=== PATIENT | female | born 1985 | race Asian ===

== ENCOUNTER 2020-07-29 16:02 | Inpatient (IN) | payer BC ==
[2020-09-15] MEDS ORDERED: Ondansetron PF 4 MG/2 ML Vial IVP PRN (10:53)
[2020-09-15] MEDS ORDERED: Famotidine/PF 20 mg/2ml Vial SLOW IVP PRN (10:53)
[2020-09-15] MEDS ORDERED: CEFAZOLIN 2 GM in Premix Bag 1 BAG IVPB SCH (10:53)
[2020-09-15] MEDS ORDERED: hydrALAZINE 20 MG/ML VIAL SLOW IVP PRN (10:53)
[2020-09-15] MEDS ORDERED: Bicitra 30 ML UDCUP PO PRN (10:53)
[2020-09-15] MEDS ORDERED: Promethazine HCl 25 MG/ML VIAL IM PRN (10:53)
[2020-09-15] MEDS: Lactated Ringer's 1,000 ML IV SCH ×2 (11:30→15:02)
[2020-09-15 11:39] VITALS: BMI 34.2
[2020-09-15 11:54] LABS: Hemoglobin 11.3 g/dL (12.0-15.5); Mean Corpuscular HGB CONC 33.1 g/dL (32.0-36.0); Mean Corpuscular Hemoglobin 28.2 pg (27.0-33.0); Mean Platelet Volume 11.7 fl (7.4-10.4); Platelet Count 184 10x3/uL (150-450); RBC Distribution Width 13.2 % (11.5-14.5); Red Blood Cell (RBC) Count 4.01 10x6/uL (3.90-5.03); White Blood Cell (WBC) Count 9.8 10x3/uL (3.5-10.5)
[2020-09-15 12:30] LABS: Hep B Surf Ag Non-Reactive S/CO (NonReactive); Syphilis Antibody Nonreactive (Nonreactive); Syphilis Antibody Index 0.04 S/CO (<1.00 Non-Reactive)
[2020-09-15 12:37] LABS: HBSAg Index 0.12 S/CO (0-0.99)
[2020-09-16] MEDS ORDERED: ePHEDrine Sulfate 50 MG/10 ML VIAL ONE (07:04)
[2020-09-16] MEDS ORDERED: Ketorolac Tromethamine 15 MG/ML VIAL ONE (07:04)
[2020-09-16] MEDS ORDERED: Morphine PF 10 MG/10 ML VIAL ONE (07:04)
[2020-09-16] MEDS ORDERED: Ondansetron PF 4 MG/2 ML Vial ONE (07:05)
[2020-09-16] MEDS ORDERED: Dexamethasone 4 mg/ml Vial ONE (07:05)
[2020-09-16] MEDS ORDERED: Oxytocin 10 UNITS/ML VIAL ONE (07:05)
[2020-09-16] MEDS ORDERED: Phenylephrine 10 MG/ML VIAL ONE (07:05)
[2020-09-16] MEDS ORDERED: Acetaminophen 325 MG TAB PO PRN (07:28)
[2020-09-16] MEDS ORDERED: Misoprostol 200 MCG TAB PR PRN (07:28)
[2020-09-16] MEDS ORDERED: Lanolin Ointment 7 GM TUBE TOP PRN (07:28)
[2020-09-16] MEDS ORDERED: hydrALAZINE 20 MG/ML VIAL SLOW IVP PRN (07:28)
[2020-09-16] MEDS ORDERED: HYDROcodone/Acetaminophen 5/325 mg Tablet PO PRN ×3 (07:28→21:00)
[2020-09-16] MEDS ORDERED: Adacel (T-DAP) 0.5 ML SYRINGE IM ONE (07:28)
[2020-09-16] MEDS ORDERED: diphenhydrAMINE 25 MG CAP PO PRN (07:28)
[2020-09-16] MEDS ORDERED: Zolpidem Tartrate 5 MG TAB PO PRN ×2 (07:28→21:00)
[2020-09-16] MEDS ORDERED: NS w/ Oxytocin 30 units 500 ML IVPB SCH (08:00)
[2020-09-16] MEDS ORDERED: Midazolam HCl 2 mg/2 ml Vial ONE ×2 (08:03→08:05)
[2020-09-16] MEDS ORDERED: Eucerin (Mineral Oil/Petrolatum,White) 30 gm Jar TOP PRN (08:24)
[2020-09-16] MEDS ORDERED: Meperidine HCl/PF 25 MG/ML VIAL SLOW IVP PRN (08:24)
[2020-09-16] MEDS ORDERED: Promethazine HCl 25 MG/ML VIAL IM PRN (08:24)
[2020-09-16] MEDS ORDERED: diphenhydrAMINE 50 MG/ML VIAL IVP PRN (08:24)
[2020-09-16] MEDS ORDERED: Ketorolac Tromethamine 30 MG/ML VIAL IVP PRN (08:24)
[2020-09-16] MEDS ORDERED: Promethazine HCl 25 MG SUPP PR PRN (08:24)
[2020-09-16] MEDS ORDERED: Ondansetron HCl/PF 4 MG/2 ML Vial IVP PRN (08:24)
[2020-09-16] MEDS ORDERED: HYDROmorphone 2 MG/ML VIAL SLOW IVP PRN (08:24)
[2020-09-16] MEDS ORDERED: L&D-Morphine 4 MG/ML VIAL SLOW IVP PRN (08:24)
[2020-09-16] MEDS ORDERED: Naloxone HCl 0.4 mg/ml Vial IVP PRN ×2 (08:24)
[2020-09-16] MEDS ORDERED: Ondansetron PF 4 MG/2 ML Vial IVP PRN (08:24)
[2020-09-16] MEDS ORDERED: Naloxone HCl 0.4 mg/ml Vial IV PRN (08:24)
[2020-09-16] MEDS ORDERED: Ketorolac Tromethamine 30 MG/ML VIAL IVP SCH (08:30)
[2020-09-16] MEDS ORDERED: Communication Order-Pharmacy FS SCH (08:30)
[2020-09-16] MEDS: Prenatal Vitamin 1 TAB PO SCH (11:41)
[2020-09-16] MEDS: Docusate Calcium (SURFAK) 240 MG CAP PO SCH ×2 (11:41→22:57)
[2020-09-16] MEDS: Lactated Ringer's 1,000 ML IV SCH (19:37)
[2020-09-17 05:40] LABS: Hemoglobin 9.7 g/dL (12.0-15.5); Mean Corpuscular HGB CONC 32.2 g/dL (32.0-36.0); Mean Corpuscular Hemoglobin 27.9 pg (27.0-33.0); Mean Corpuscular Volume 86.5 fl (81.6-98.3); Mean Platelet Volume 11.3 fl (7.4-10.4); Platelet Count 160 10x3/uL (150-450); RBC Distribution Width 13.5 % (11.5-14.5); Red Blood Cell (RBC) Count 3.48 10x6/uL (3.90-5.03); White Blood Cell (WBC) Count 10.8 10x3/uL (3.5-10.5)
[2020-09-17] MEDS: Prenatal Vitamin 1 TAB PO SCH (10:08)
[2020-09-17] MEDS: Docusate Calcium (SURFAK) 240 MG CAP PO SCH ×2 (10:10→20:11)
[2020-09-17] MEDS: HYDROcodone/Acetaminophen 5/325 mg Tablet PO PRN ×2 (15:05→20:09)
[2020-09-17] MEDS: Ibuprofen 800 MG TAB PO SCH ×2 (15:06→21:57)
[2020-09-18] MEDS: HYDROcodone/Acetaminophen 5/325 mg Tablet PO PRN ×4 (00:46→20:39)
[2020-09-18] MEDS: Ibuprofen 800 MG TAB PO SCH ×3 (06:26→22:03)
[2020-09-18] MEDS: Simethicone Chewable 80 MG TAB PO PRN ×2 (06:28→20:41)
[2020-09-18] MEDS: Docusate Calcium (SURFAK) 240 MG CAP PO SCH ×2 (08:59→22:30)
[2020-09-18] MEDS: Prenatal Vitamin 1 TAB PO SCH (08:59)
[2020-09-19] MEDS: HYDROcodone/Acetaminophen 5/325 mg Tablet PO PRN ×5 (00:59→21:47)
[2020-09-19] MEDS: Simethicone Chewable 80 MG TAB PO PRN ×2 (05:50→11:56)
[2020-09-19] MEDS: Ibuprofen 800 MG TAB PO SCH ×3 (05:50→21:47)
[2020-09-19] MEDS: Docusate Calcium (SURFAK) 240 MG CAP PO SCH ×2 (09:36→21:47)
[2020-09-19] MEDS: Prenatal Vitamin 1 TAB PO SCH (09:36)
[2020-09-19] MEDS: Bisacodyl 10 MG SUPP PR PRN ×2 (13:04→21:16)
[2020-09-19 21:45] VITALS: BP 134/85; TEMP 98.4
== END 2020-09-19 23:30 | disposition home or self-care (01) | DRG 788 ==
LOC: CSHSDC 16:02 → CSHLD 09-15 10:35 → EDSTATUS 09-15 21:14 → CSHPP 09-16 11:30
PROVIDERS: ADMIT Obstetrics & Gynecology; ATTEND Obstetrics & Gynecology
PROC: 10D00Z1 Extraction of Products of Conception, Low, Open Approach (ICD-10-PCS; principal; 2020-09-16)
DX: O32.1XX0 Maternal care for breech presentation, not applicable or unspecified (principal); Z3A.39 39 weeks gestation of pregnancy; Z37.0 Single live birth; Z20.822 Contact with and (suspected) exposure to COVID-19; O99.344 Other mental disorders complicating childbirth; F32.9 Major depressive disorder, single episode, unspecified; F41.9 Anxiety disorder, unspecified
CPT/HCPCS: 36415; 51702; 85027; 86780; 86850; 86900; 86901; 87340; J0690; J1100; J1885; J2250; J2274; J2370; J2405

== ENCOUNTER 2020-09-10 11:14 | Outpatient (CLI) | payer BC ==
[2020-09-10 20:12] LABS: SARS-CoV-2 PCR by NAA Not Detected (NotDetected)
== END 2020-09-10 11:15 | disposition home or self-care (01) ==
LOC: CSHLAB 11:14
PROVIDERS: ATTEND Obstetrics & Gynecology
DX: Z20.822 Contact with and (suspected) exposure to COVID-19 (principal)
CPT/HCPCS: 87635; U0003; U0005

== ENCOUNTER 2020-09-22 15:50 | Emergency (ER) | payer BC ==
[2020-09-22 17:26] LABS: #Eosinphils 0.3 10x3/uL (0.0-0.5); #Monocytes 0.9 10x3/uL (0.0-1.1); #Neutrophils 6.5 10x3/uL (1.5-8.4); %Basophils 0.4 % (0.0-2.0); %Eosinophils 3.5 % (0.0-6.0); %Lymphocytes 15.2 % (18.0-47.0); %Monocytes 9.2 % (0.0-10.0); %Neutrophils 70.5 % (40.0-75.0); Hemoglobin 11.2 g/dL (12.0-15.5); Mean Corpuscular HGB CONC 32.5 g/dL (32.0-36.0); Mean Corpuscular Hemoglobin 27.7 pg (27.0-33.0); Mean Corpuscular Volume 85.2 fl (81.6-98.3); Mean Platelet Volume 10.1 fl (7.4-10.4); Platelet Count 239 10x3/uL (150-450); RBC Distribution Width 13.4 % (11.5-14.5); Red Blood Cell (RBC) Count 4.05 10x6/uL (3.90-5.03); White Blood Cell (WBC) Count 9.2 10x3/uL (3.5-10.5)
[2020-09-22 17:48] LABS: ALT (SGPT) 54 U/L (8-55); AST (SGOT) 30 U/L (5-34); Albumin 3.2 g/dL (3.5-5.0); Alkaline Phosphatase 131 U/L (40-110); Anion Gap 15 mmol/L (10-20); BUN (Urea Nitrogen) 12 mg/dL (7.0-18.7); Bilirubin, Total 0.3 mg/dL (0.2-1.2); Calc. Creatinine Clearance 0 mL/min (70-130); Calcium 9.2 mg/dL (7.8-10.44); Carbon Dioxide 24 mmol/L (22-29); Chloride 105 mmol/L (98-107); Globulin 3.6 g/dL (2.4-3.5); Glucose 84 mg/dL (70-105); Lipase 19 U/L (8-78); Potassium 3.9 mmol/L (3.5-5.1); Protein, Total 6.8 g/dL (6.0-8.3); Sodium 140 mmol/L (136-145)
[2020-09-22] MEDS ORDERED: HYDROcodone/Acetaminophen 5/325 mg Tablet ONE (18:44)
[2020-09-22 18:49] LABS: Bilirubin Neg (Negative); Blood, Urine 150 (Negative); Clarity Clear (Clear); Glucose, Urine (Dipstick) Normal (Negative); Ketone, Urine Negative (Negative); Leukocyte 100 (Negative); Nitrite Negative (Negative); Protein, Urine (Dipstick) Negative (Neg-Trace); Urobilinogen Normal mg/dL (Less than 2)
[2020-09-22 19:54] LABS: Squamous Epithelial 0-3 HPF (0-3)
[2020-09-22 19:56] LABS: Bacteria/HPF 1+ HPF (None Seen); WBC/HPF 0-3 HPF (0-3)
== END 2020-09-22 19:33 | disposition home or self-care (01) ==
LOC: CSHERS 15:50
DX: O90.89 Other complications of the puerperium, not elsewhere classified (principal); G89.18 Other acute postprocedural pain; R10.9 Unspecified abdominal pain; O99.893 Other specified diseases and conditions complicating puerperium; N13.30 Unspecified hydronephrosis
CPT/HCPCS: 74177; 80053; 81003; 81015; 83690; 85025